=== PATIENT | female | born 1975 | race Caucasian/White ===

== ENCOUNTER 2019-04-18 19:12 | Emergency (ER) | payer BC ==
[~2019-04-18] VITALS: Ht 175.3 cm; Wt 111.1 kg
[2019-04-18 19:18] VITALS: BP 124/83
[2019-04-18] MEDS ORDERED: Acetaminophen 500mg (ES) tab ORAL ONE (19:45)
[2019-04-18] MEDS ORDERED: Metoclopramide 10mg/2ml Inj IM ONE (19:45)
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
[2019-04-18] MEDS ORDERED: ROBAXIN500 MG PO (20:42)
[2019-04-18] MEDS ORDERED: VOLTAREN100 G1 TP (20:42)
[2019-04-18] MEDS ORDERED: KENALOG 0.025%15 GM APPLIC (20:43)
[2019-04-18 20:50] VITALS: BP 123/81
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
== END 2019-04-18 20:56 | disposition home or self-care (01) ==
LOC: EDBD 19:12 → EMR 19:48
DX: S00.93XA Contusion of unspecified part of head, initial encounter (principal); S60.221A Contusion of right hand, initial encounter; V43.52XA Car driver injured in collision with other type car in traffic accident, initial encounter; Y92.9 Unspecified place or not applicable; Z88.8 Allergy status to other drugs, medicaments and biological substances; F41.9 Anxiety disorder, unspecified; F32.9 Major depressive disorder, single episode, unspecified; L25.9 Unspecified contact dermatitis, unspecified cause
CPT/HCPCS: 70450; 73130; 96372; 99284; J2765